=== PATIENT | female | born 1985 | race Caucasian/White ===

== ENCOUNTER 2019-04-19 15:00 | Inpatient (IN) | payer OTHER ==
[~2019-04-19] VITALS: Ht 165.1 cm; Wt 55.3 kg
[~2019-04-19 15:00] MED LIST: DEPAKOTE ER500 MG PO; LAMICTAL100 MG PO
== END 2019-04-24 16:46 | disposition home or self-care (01) | DRG 807 ==
LOC: OB/GYN 15:00 → LDR 04-22 08:23 → OB/GYN 04-22 14:37
PROVIDERS: ADMIT Obstetrics & Gynecology
PROC: 10E0XZZ Delivery of Products of Conception, External Approach (ICD-10-PCS; principal; 2019-04-22)
PROC: 0HQ9XZZ Repair Perineum Skin, External Approach (ICD-10-PCS; 2019-04-22)
PROC: 3E033VJ Introduction of Other Hormone into Peripheral Vein, Percutaneous Approach (ICD-10-PCS; 2019-04-22)
PROC: 4A1HXCZ Monitoring of Products of Conception, Cardiac Rate, External Approach (ICD-10-PCS; 2019-04-22)
DX: O70.0 First degree perineal laceration during delivery (principal); Z37.0 Single live birth; O99.353 Diseases of the nervous system complicating pregnancy, third trimester; Z3A.39 39 weeks gestation of pregnancy

== ENCOUNTER 2023-06-23 12:26 | Emergency (ER) | payer OTHER ==
[~2023-06-23] VITALS: Ht 162.6 cm; Wt 54.4 kg
[2023-06-23] MEDS ORDERED: KEPPRA500 MG PO ×2 (13:41→13:42)
[2023-06-23 16:50] LABS: HEMATOCRIT 33.8 % (36.0-45.00); HEMOGLOBIN 11.1 g/dL (12.0-15.00); MEAN CELL VOLUME 84.6 fL (80.00-100.00); MEAN CORPUSCULAR HEMOGLOBIN 27.8 pg (27.00-32.0); MEAN CORPUSCULAR HGB CONC 32.8 g/dl (32.0-36.0); PLATELET COUNT 198 K/uL (150-450); RED CELL DISTRIBUTION WIDTH 17.6 % (11.5-14.5)
[2023-06-23 17:00] LABS: CREATININE SERUM 0.76 mg/dL (0.55-1.02); GFR 86.11; POTASSIUM 3.36 mEq/L (3.5-5.1)
[2023-06-23] MEDS ORDERED: PEPCID AC20 MG PO (19:18)
[2023-06-23] MEDS ORDERED: ZITHROMAX500 MG PO (19:18)
== END 2023-06-23 19:33 | disposition home or self-care (01) ==
LOC: ER 12:27
PROVIDERS: Nurse Practitioner Family
DX: R53.81 Other malaise (principal); R10.13 Epigastric pain; J00 Acute nasopharyngitis [common cold]; Z20.822 Contact with and (suspected) exposure to COVID-19

== ENCOUNTER 2023-11-23 02:58 | Emergency (ER) | payer OTHER ==
[~2023-11-23] VITALS: Ht 162.6 cm; Wt 54.4 kg
[~2023-11-23 02:58] MED LIST changes: +KEPPRA500 MG PO; +PEPCID AC20 MG PO; +ZITHROMAX500 MG PO
[2023-11-23] MEDS ORDERED: AZITHROMYCIN 500 MG TABLET PO STA (03:55)
[2023-11-23] MEDS ORDERED: KETOROLAC TROMETHAMINE 10 MG TABLET PO STA (03:56)
[2023-11-23] MEDS ORDERED: ZITHROMAX500 MG PO (04:00)
[2023-11-23] MEDS ORDERED: KETO10TA2 PO (04:00)
== END 2023-11-23 04:07 ==
LOC: ER 02:59
DX: H60.90 Unspecified otitis externa, unspecified ear (principal)

== ENCOUNTER 2025-02-09 20:14 | Emergency (ER) | payer OTHER ==
[~2025-02-09] VITALS: Ht 165.1 cm; Wt 54.4 kg
[~2025-02-09 20:14] MED LIST changes: +KETO10TA2 PO
[2025-02-09] MEDS ORDERED: CETIRIZINE HCL 5 MG/5 ML ML PO ONE (21:00)
[2025-02-09] MEDS ORDERED: KETOROLAC TROMETHAMINE 30 MG VIAL IM ONE (21:00)
[2025-02-09] MEDS ORDERED: CETIRIZINE HCL 5MG/5ML BLIST.PACK PO ONE (21:07)
[2025-02-09] MEDS ORDERED: KETOROLAC TROMETHAMINE 30 MG VIAL ONE (21:07)
[2025-02-09 21:28] LABS: BASO % 0.4 % (0.1-1.2); EOS # 0.13 (0.04-0.54); EOS % 2.5 % (0.7-7.0); LYMPH # 1.10 (1.18-3.74); LYMPH % 21.2 % (19.3-53.1); MEAN PLATELET VOLUME 11.10 fl (9.4-12.4); MONO # 0.76 (0.24-0.82); NEUT # 3.18 (1.56-6.13); NEUT % 61.1 % (34.0-71.1); RED CELL DISTRIBUTION WIDTH 15.7 % (11.6-14.4)
[2025-02-09 21:34] LABS: MONO % 14.6 % (4.7-12.5)
[2025-02-09 22:11] LABS: COVID-19 AG NEGATIVE (NEGATIVE)
[2025-02-09] MEDS ORDERED: PEPCID AC20 MG PO (22:34)
[2025-02-09] MEDS ORDERED: OSEL75CA PO (22:34)
== END 2025-02-09 22:40 | disposition home or self-care (01) ==
LOC: ER 20:14
PROVIDERS: General Practice
DX: J10.1 Influenza due to other identified influenza virus with other respiratory manifestations (principal); Z20.822 Contact with and (suspected) exposure to COVID-19